=== PATIENT | female | born 1980 | race Caucasian/White ===

== ENCOUNTER 2017-01-28 15:02 | Emergency (ER) | payer OTHER ==
[2017-01-28 15:08] VITALS: BP 126/73; PULSE 83; TEMP 99.4; BMI 37.9
[2017-01-28] MEDS ORDERED: KETOROLAC TROMETHAMINE 60 MG/2 ML VIAL IM ONE (15:22)
[2017-01-28] MEDS ORDERED: CYCLOBENZAPRINE HCL 10 MG TABLET (FP) PO ONE (15:23)
[2017-01-28] MEDS ORDERED: KETOROLAC TROMETHAMINE 60 MG/2 ML VIAL ONE (15:25)
[2017-01-28] MEDS ORDERED: CYCLOBENZAPRINE HCL 10 MG TABLET (FP) ONE (15:25)
--- NOTE | 2017-01-28 15:31 | PDOC ---
History of Present Illness - General Chief Complaint: Back Pain Stated Complaint: BACK PAIN Time Seen by Provider: 01/28/17 15:14 History Source: Patient - History of Present Illness Occurred: reports: other (last night) Pain Location: reports: back Past History - Past Medical History Allergies/Adverse Reactions: Allergies Allergy/AdvReac Type Severity Reaction Status Date / Time No Known Allergies Allergy Verified 01/28/17 15:08 Home Medications: Ambulatory Orders Cyclobenzaprine HCl [Flexeril 10 mg] 10 mg PO TID PRN #9 tablet 01/28/17 Ibuprofen [Motrin -] 800 mg PO Q6H #30 tablet 01/28/17 Asthma: No Cancer: No Cardiac Disorders: No Diabetes: No HTN: No Seizures: No Thyroid Disease: No - Surgical History Cholecystectomy: Yes - Psycho/Social/Smoking Cessation Hx Anxiety: No Suicidal Ideation: No Smoking History: Never smoked Have you smoked in the past 12 months: No Hx Alcohol Use: No Drug/Substance Use Hx: No Substance Use Type: None Hx Substance Use Treatment: No Review of Systems - Review of Systems Constitutional: No: Chills, Fever Musculoskeletal: Yes: Back Pain Neurological: No: Numbness, Tingling, Weakness *Physical Exam - Vital Signs Last Vital Signs Temp Pulse Resp BP Pulse Ox 99.4 F 83 20 126/73 98 01/28/17 15:04 01/28/17 15:04 01/28/17 15:04 01/28/17 15:04 01/28/17 15:04 - Physical Exam General Appearance: Yes: Appropriately Dressed. No: Apparent Distress HEENT: positive: Normal Voice Neck: positive: Supple Respiratory/Chest: negative: Respiratory Distress Gastrointestinal/Abdominal: positive: Soft. negative: Tender Musculoskeletal: positive: Normal Inspection, Vertebral Tenderness (to mid lower back). negative: CVA Tenderness Extremity: positive: Normal Inspection Integumentary: positive: Dry, Warm Neurologic: positive: Fully Oriented, Alert, Normal Mood/Affect Medical Decision Making - Medical Decision Making 01/28/17 15:24 36 yo F, morbid obesity, chronic back pain, s/p recent MRI showing 1 "disc bulge " per pt, has MRI disc but not the report on her person, has f/u with back specialist in near future and taking motrin as needed but here because motrin not helping for pain. Back pain worsened last night, located to mid back, sharp , 7/10 and radiates to legs which is not new for pt. No LE weakness, saddle anesthesia, B/B incontinence. See exam Acute on chronic back pain Herniated disc on recent MRI No e/o cauda equina at this time -pain control>reassess 01/28/17 16:04 Pt reports feeling significantly better. Will dc w/ rx and encourage follow up *DC/Admit/Observation/Transfer Diagnosis at time of Disposition: Chronic low back pain Qualifiers: Back pain laterality: unspecified Sciatica presence: without sciatica Qualified Code(s): M54.5 - Low back pain; G89.29 - Other chronic pain - Discharge Dispostion Disposition: HOME Condition at time of disposition: Improved - Prescriptions Prescriptions: Cyclobenzaprine HCl [Flexeril 10 mg] 10 mg PO TID PRN #9 tablet PRN Reason: Back Pain Ibuprofen [Motrin -] 800 mg PO Q6H #30 tablet - Patient Instructions Printed Discharge Instructions: Low Back Pain Additional Instructions: Take medications as directed and follow up with your back pain specialist as already scheduled
--- NOTE | 2017-01-28 16:08 | PDOC ---
*Physical Exam - Vital Signs Last Vital Signs Temp Pulse Resp BP Pulse Ox 99.4 F 83 20 126/73 98 01/28/17 15:04 01/28/17 15:04 01/28/17 15:04 01/28/17 15:04 01/28/17 15:04 ED Treatment Course - Medications Given in the ED: ED Medications Discontinued Medications Generic Name Dose Route Start Last Admin Trade Name Freq PRN Reason Stop Dose Admin Cyclobenzaprine HCl 10 mg 01/28/17 15:23 01/28/17 15:29 Flexeril - PO 01/28/17 15:24 10 mg ONCE ONE Administration Ketorolac Tromethamine 60 mg 01/28/17 15:22 01/28/17 15:28 Toradol Injection - IM 01/28/17 15:23 60 mg ONCE ONE Administration *DC/Admit/Observation/Transfer Diagnosis at time of Disposition: Chronic low back pain Qualifiers: Back pain laterality: unspecified Sciatica presence: without sciatica Qualified Code(s): M54.5 - Low back pain - Discharge Dispostion Disposition: HOME Condition at time of disposition: Improved - Prescriptions Prescriptions: Cyclobenzaprine HCl [Flexeril 10 mg] 10 mg PO TID PRN #9 tablet PRN Reason: Back Pain Ibuprofen [Motrin -] 800 mg PO Q6H #30 tablet - Referrals Referrals: Christine Sykes MD [Primary Care Provider] - - Patient Instructions Printed Discharge Instructions: Low Back Pain Additional Instructions: Take medications as directed and follow up with your back pain specialist as already scheduled - Post Discharge Activity
== END 2017-01-28 16:08 | disposition home or self-care (01) ==
LOC: JERFT 15:02
DX: M54.5 Low back pain (principal); G89.29 Other chronic pain; E66.9 Obesity, unspecified; Z68.37 Body mass index [BMI] 37.0-37.9, adult
CPT/HCPCS: 99281-25

== ENCOUNTER 2021-03-26 09:40 | Emergency (ER) | payer OTHER ==
[2021-03-26 10:11] VITALS: BP 118/79; PULSE 79; TEMP 98.8; BMI 23.0
== END 2021-03-26 11:54 | disposition home or self-care (01) ==
LOC: JER 09:40
DX: J11.1 Influenza due to unidentified influenza virus with other respiratory manifestations (principal)
CPT/HCPCS: 71046-TC-FY; 99284-25; C9803; U0003; U0005

== ENCOUNTER 2024-06-20 09:51 | Emergency (ER) | payer OTHER ==
[2024-06-20 10:10] VITALS: BP 136/98; PULSE 88; RESP 16; TEMP 98.6; BMI 37.2
[2024-06-20] MEDS ORDERED: IBUPROFEN 600 MG TABLET (FP) PO ONE (13:16)
[2024-06-20] MEDS: IBUPROFEN 600 MG TABLET (FP) PO ONE (13:17)
== END 2024-06-20 14:19 | disposition home or self-care (01) ==
LOC: JERFT 09:51
DX: J10.1 Influenza due to other identified influenza virus with other respiratory manifestations (principal); M79.10 Myalgia, unspecified site; R50.9 Fever, unspecified; J98.8 Other specified respiratory disorders; B97.89 Other viral agents as the cause of diseases classified elsewhere; Z20.822 Contact with and (suspected) exposure to COVID-19
CPT/HCPCS: 0241U-QW; 87651; 99284-25